=== PATIENT | female | born 1990 | race Asian ===

== ENCOUNTER 2018-07-07 02:49 | Observation (INO) | payer OTHER ==
--- NOTE | 2018-07-07 03:17 | EDM.PDOC ---
ED HPI GENERAL MEDICAL PROBLEM - General Chief Complaint: Abdominal Pain Stated Complaint: ABDOMINAL PAIN Time Seen by Provider: 07/07/18 03:04 - History of Present Illness INITIAL COMMENTS - FREE TEXT/NARRATIVE: 27-year-old female presents to the emergency room after being evaluated in [place] for right lower quadrant pain. Patient developed right lower quadrant pain about a week ago this is progressively gotten worse. She went to the emergency room at [facility] and had an evaluation where she was noted have a low-grade fever leukocytosis and right lower quadrant pain. CT scan was done which was suggestive of an early appendicitis with an appendicolith in the midportion of the appendix. The provider in [place] did discuss this with our on-call surgeon and the patient was brought to our emergency room by private car. 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: - Infectious Disease History Infectious Disease History: Reports: HIV-Human Immunodeficiency Virus - Past Surgical History Female Surgical History: Reports: Section Social & Family History - Tobacco Use Smoking Status *Q: Current Every Day Smoker Years of Tobacco use: 5 Packs/Tins Daily: 0.2 - Alcohol Use Days Per Week of Alcohol Use: 2 Number of Drinks Per Day: 1 Total Drinks Per Week: 2 - Recreational Drug Use Recreational Drug Use: No ED ROS GENERAL - Review of Systems Review Of Systems: See Below Constitutional: Reports: Fever, Chills HEENT: Reports: No Symptoms Respiratory: Reports: No Symptoms Cardiovascular: Reports: No Symptoms Endocrine: Reports: No Symptoms GI/Abdominal: Reports: Abdominal Pain, Nausea. Denies: Constipation, Diarrhea : Reports: No Symptoms ED EXAM, GI/ABD - Physical Exam Exam: See Below Exam Limited By: No Limitations General Appearance: Alert, No Apparent Distress Head: Atraumatic, Normocephalic Neck: Normal Inspection, Supple, Non-Tender, Full Range of Motion Respiratory/Chest: No Respiratory Distress, Lungs Clear, Normal Breath Sounds Cardiovascular: Regular Rate, Rhythm, No Edema, No Murmur GI/Abdominal Exam: Rebound (Impression left lower abdomen upon release causes sharp exquisite discomfort in the right lower quadrant.), Tender (Right lower quadrant) Back Exam: Normal Inspection. No: CVA Tenderness (L), CVA Tenderness (R) Extremities: Normal Inspection, No Pedal Edema Neurological: Alert, Oriented, Normal Cognition Lymphatic: No Adenopathy Course - Vital Signs Last Recorded V/S: Last Vital Signs Temp 36.5 C 07/07/18 02:56 Pulse 92 07/07/18 02:56 Resp 18 07/07/18 02:56 BP 123/70 07/07/18 02:56 Pulse Ox 99 07/07/18 02:56 - Orders/Labs/Meds Orders: Active Orders 24 hr Category Date Time Status BASIC METABOLIC PANEL,BMP [CHEM] Stat Lab 07/07/18 03:45 Received Dextrose 5%-0.9% NaCl with KCl [D5 NS with 20 mEq KCl] Med 07/07/18 03:45 Active 1,000 ml IV ASDIRECTED metroNIDAZOLE/Normal Saline [Flagyl 500 MG in NS 100 ML Med 07/07/18 03:30 Active ] 500 mg Premix Bag 1 bag IV Q8H Medication Orders Metronidazole 500 mg/ Premix 100 mls @ 100 mls/hr IV Q8H JEFFREY Potassium Chloride/Dextrose/Sod Cl (D5 Ns With 20 Meq Kcl) 1,000 mls @ 100 mls/ hr IV ASDIRECTED JEFFREY Last Admin: 07/07/18 03:59 Dose: 100 mls/hr Meds: Medications Generic Name Dose Route Start Last Admin Trade Name Freq PRN Reason Stop Dose Admin Metronidazole 500 mg/ Premix 100 mls @ 100 mls/hr 07/07/18 03:30 IV Q8H JEFFREY Potassium Chloride/Dextrose/Sod Cl 1,000 mls @ 100 mls/hr 07/07/18 03:45 01/15 03:59 D5 Ns With 20 Meq Kcl IV 100 mls/hr ASDIRECTED JEFFREY Administration Discontinued Medications Generic Name Dose Route Start Last Admin Trade Name Freq PRN Reason Stop Dose Admin Ceftriaxone Sodium 1 gm/ 100 mls @ 200 mls/hr 07/07/18 03:29 07/07/18 03:42 Sodium Chloride IV 07/07/18 03:58 200 mls/hr ONETIME ONE Administration - Re-Assessments/Exams Free Text/Narrative Re-Assessment/Exam: 07/07/18 03:35 Patient presents emergency room via private car after being evaluated [place] thought to have acute appendicitis. Reviewed the labs she could have a distal appendicitis on exam she's got positive rebound on the left side with pain radiating to the right lower quadrant gentle palpation reveals significant discomfort in the right lower quadrant. Case discussed with patient will be placed on observation anticipate appendectomy today we'll start IV Rocephin and Flagyl. Recheck basic metabolic panel his potassium was quite low and [place] she's received 20 mEq of oral potassium and 20 mg of IV potassium in [place]. Departure - Departure Time of Disposition: 03:50 Disposition: Refer to Observation Clinical Impression: Appendicitis - Discharge Information Referrals: PCP,None [Primary Care Provider] - Forms: ED Department Discharge - My Orders Last 24 Hours: My Active Orders 07/07/18 03:30 metroNIDAZOLE/Normal Saline [Flagyl 500 MG in NS 100 ML] 500 mg Premix Bag 1 bag IV Q8H 07/07/18 03:45 BASIC METABOLIC PANEL,BMP [CHEM] Stat Dextrose 5%-0.9% NaCl with KCl [D5 NS with 20 mEq KCl] 1,000 ml IV ASDIRECTED - Assessment/Plan Last 24 Hours: My Active Orders 07/07/18 03:30 metroNIDAZOLE/Normal Saline [Flagyl 500 MG in NS 100 ML] 500 mg Premix Bag 1 bag IV Q8H 07/07/18 03:45 BASIC METABOLIC PANEL,BMP [CHEM] Stat Dextrose 5%-0.9% NaCl with KCl [D5 NS with 20 mEq KCl] 1,000 ml IV ASDIRECTED
[2018-07-07] MEDS ORDERED: cefTRIAXone 1 GM in Sodium Chloride 0.9% 100 ML IV ONE (03:29)
[2018-07-07] MEDS ORDERED: metroNIDAZOLE/Normal Saline 500 MG in Premix Bag 1 BAG IV SCH (03:30)
[2018-07-07] MEDS ORDERED: Dextrose 5%-0.9% NaCl with KCl 1,000 ML IV SCH ×2 (03:45→06:00)
[2018-07-07] MEDS ORDERED: Morphine 2 MG/ML Syringe IVPUSH PRN (05:54)
[2018-07-07] MEDS ORDERED: Ondansetron 4 MG/2 ML SDV IVPUSH PRN ×2 (05:54→12:12)
[2018-07-07] MEDS ORDERED: Lidocaine 1% with EPINEPHrine 1:100,000 20 ML MDV ONE (07:24)
--- NOTE | 2018-07-07 07:47 | PCM.HP ---
H&P History of Present Illness - General Date of Service: 07/07/18 Admit Problem/Dx: Admission Diagnosis/Problem Admission Diagnosis/Problem Appendicitis - History of Present Illness Initial Comments - Free Text/Narative: The patient is a 27 y/o female who presents with 8 days of RLQ abdominal pain. She reports decreased appetite and obstipation. She denies any diarrhea, hematochezia or melena. She denies fever. She denies any nausea or vomiting. She was seen at an outside facility and underwent lab testing and CT scan of the abdomen. WBC was 19K and CT scan was consistent with appendicolith and tip appendicitis. 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: - Infectious Disease History Infectious Disease History: Reports: HIV-Human Immunodeficiency Virus - Past Surgical History Female Surgical History: Reports: Section Social & Family History - Family History Cardiac: Reports: None Respiratory: Reports: None GI: Reports: None - Tobacco Use Smoking Status *Q: Current Every Day Smoker Years of Tobacco use: 5 Packs/Tins Daily: 1 Used Tobacco, but Quit: No Second Hand Smoke Exposure: Yes - Caffeine Use Caffeine Use: Reports: Coffee Other Caffeine Use: one cup of coffee every day - Alcohol Use Days Per Week of Alcohol Use: 2 Number of Drinks Per Day: 1 Total Drinks Per Week: 2 - Recreational Drug Use Recreational Drug Use: No H&P Review of Systems - Review of Systems: Review Of Systems: See Below General: Reports: Decreased Appetite HEENT: Reports: No Symptoms Pulmonary: Reports: No Symptoms Cardiovascular: Reports: No Symptoms Gastrointestinal: Reports: Abdominal Pain, Decreased Appetite Genitourinary: Reports: No Symptoms Musculoskeletal: Reports: No Symptoms Skin: Reports: No Symptoms Psychiatric: Reports: No Symptoms Neurological: Reports: No Symptoms Exam - Exam Exam: See Below - Vital Signs Vital Signs: Last Vital Signs Temp 36.6 C 07/07/18 04:18 Pulse 97 07/07/18 04:18 Resp 16 07/07/18 04:18 BP 111/51 L 07/07/18 04:18 Pulse Ox 97 07/07/18 04:18 Weight: 52.39 kg - Exam Quality Assessment: No: Supplemental Oxygen General: Alert, Oriented HEENT: Conjunctiva Clear, EOMI Neck: Supple Lungs: Clear to Auscultation, Normal Respiratory Effort Cardiovascular: Regular Rate, Regular Rhythm GI/Abdominal Exam: Normal Bowel Sounds, Soft, Tender (on R abdomen, RLQ most tender) Extremities: Normal Inspection, No Pedal Edema Peripheral Pulses: 2+: Posterior Tibial (L), Posterior Tibial (R) Skin: Warm, Dry, Intact Neurological: Cranial Nerves Intact Neuro Extensive - Mental Status: Alert, Oriented x3, Normal Mood/Affect - Patient Data Lab Results Last 24 hrs: Laboratory Results - last 24 hr 07/07/18 Range/Units 03:45 Sodium 142 (136-145) mEq/L Potassium 3.6 (3.5-5.1) mEq/L Chloride 106 (98-107) mEq/L Carbon Dioxide 26 (21-32) mEq/L Anion Gap 13.6 (5-15) BUN 11 (7-18) mg/dL Creatinine 0.6 (0.55-1.02) mg/dL Est Cr Clr Drug Dosing 100.27 mL/min Estimated GFR (MDRD) > 60 (>60) mL/min BUN/Creatinine Ratio 18.3 H (14-18) Glucose 98 (74-106) mg/dL Calcium 8.7 (8.5-10.1) mg/dL Result Diagrams: 07/07/18 03:45 *Q Meaningful Use (ADM) - VTE Risk Assess *Q Each Risk Factor Represents 1 Point: Minor Surgery Planned Total Score 1 Point Risk Factors: 1 - Problem List (1) Appendicitis SNOMED Code(s): 29580358 ICD Code: K37 - UNSPECIFIED APPENDICITIS Status: Acute Current Visit: Yes Qualifiers: Appendicitis type: acute appendicitis Appendicitis gangrene presence: without gangrene Appendicitis perforation presence: without perforation Appendicitis abscess presence: without abscess Problem List Initiated/Reviewed/Updated: Yes Orders Last 24hrs: Active Orders 24 hr Category Date Time Status Patient Status [ADT] Routine ADT 07/07/18 04:25 Active Bedrest Bathroom Privileges [RC] ASDIRECTED Care 07/07/18 05:41 Active NPO Now [Nothing per Oral Now Diet] [DIET] Diet 07/07/18 Breakfast Active Dextrose 5%-0.9% NaCl with KCl [D5 NS with 20 mEq KCl] Med 07/07/18 06:00 Active 1,000 ml IV ASDIRECTED Morphine Med 07/07/18 05:54 Active 2 mg IVPUSH Q2H PRN Ondansetron [Zofran] Med 07/07/18 05:54 Active 4 mg IVPUSH Q8H PRN metroNIDAZOLE [Flagyl] Med 07/07/18 12:30 Active 500 mg PO Q8H Code Status [Resuscitation Status] Routine Resus Stat 07/07/18 05:40 Ordered Medication Orders Potassium Chloride/Dextrose/Sod Cl (D5 Ns With 20 Meq Kcl) 1,000 mls @ 100 mls/ hr IV ASDIRECTED JEFFREY Metronidazole (Flagyl) 500 mg PO Q8H JEFFREY Morphine Sulfate (Morphine) 2 mg IVPUSH Q2H PRN PRN Reason: Pain Ondansetron HCl (Zofran) 4 mg IVPUSH Q8H PRN PRN Reason: Nausea Assessment/Plan Comment:: An 7-year-old lady with acute appendicitis, appears to be tip appendicitis based on CT findings - Consented for laparoscopic appendectomy, possible open. Risks of infection, bleeding and possible bowel injury discussed. Written consent was obtained - IV antibiotics with 1 g ceftriaxone and 500 mg metronidazole IV - Continue home medication regimen - Nothing by mouth with IV fluids - Will assess need for continued inpatient stay. Based on intraoperative findings. Octavia Zarate MD General Surgery
[2018-07-07] MEDS ORDERED: ceFAZolin 1 GM Vial ONE (08:05)
[2018-07-07] MEDS ORDERED: Rocuronium 50 MG/5 ML Vial ONE (08:05)
[2018-07-07] MEDS ORDERED: Lactated Ringers 1,000 ML ONE (08:05)
[2018-07-07] MEDS ORDERED: Ondansetron 4 MG/2 ML SDV ONE (08:05)
[2018-07-07] MEDS ORDERED: Dexamethasone 4 MG/ML SDV ONE ×2 (08:05→08:06)
[2018-07-07] MEDS ORDERED: Lidocaine 1% 4 ML ONE (08:05)
[2018-07-07] MEDS ORDERED: fentaNYL 250 MCG/5 ML SDV ONE (08:06)
[2018-07-07] MEDS ORDERED: Midazolam 1 MG/ML 2 ML SDV ONE (08:06)
[2018-07-07] MEDS ORDERED: Propofol 200 MG/20 ML SDV ONE (08:06)
[2018-07-07] MEDS ORDERED: EMTRICITABINE PO SCH (09:00)
[2018-07-07] MEDS ORDERED: TENOFOVIR PO SCH (09:00)
[2018-07-07] MEDS ORDERED: DARUNAVIR 800 MG PO SCH (09:00)
[2018-07-07] MEDS ORDERED: RITONAVIR 100 MG PO SCH (09:00)
--- NOTE | 2018-07-07 09:11 | PCM.PREANE ---
Preanesthetic Assessment - Anesthesia/Transfusion/Family Hx Anesthesia History: Prior Anesthesia Without Reaction Family History of Anesthesia Reaction: No Transfusion History: No Prior Transfusion(s) - Review of Systems General: No Symptoms Pulmonary: No Symptoms, Other (Smoker. 5 cigarettes per day. ) Gastrointestinal: Abdominal Pain Neurological: No Symptoms Other: Reports: None (HIV positive. On antiviral medications. Anemia. ) - Physical Assessment NPO Status Date: 07/06/18 NPO Status Time: 21:00 Pulse: 97 O2 Sat by Pulse Oximetry: 97 Respiratory Rate: 16 Blood Pressure: 111/51 Temperature: 36.6 C Vital Signs: Last Vital Signs Temp 36.6 C 07/07/18 04:18 Pulse 97 07/07/18 04:18 Resp 16 07/07/18 04:18 BP 111/51 L 07/07/18 04:18 Pulse Ox 97 07/07/18 04:18 Height: 1.5 m Weight: 52.39 kg ASA Class: 2 Mental Status: Alert & Oriented x3 Airway Class: Mallampati = 1 Dentition: Reports: Missing Tooth/Teeth (Loose tooth bottom left molar. Loose for 18 years, not painful. ), Caries Thyro-Mental Finger Breadths: 3 Mouth Opening Finger Breadths: 3 ROM/Head Extension: Full Lungs: Clear to Auscultation, Normal Respiratory Effort Cardiovascular: Regular Rate, Regular Rhythm - Lab Values: Laboratory Last Values Sodium 142 mEq/L (136-145) 07/07/18 03:45 Potassium 3.6 mEq/L (3.5-5.1) 07/07/18 03:45 Chloride 106 mEq/L (98-107) 07/07/18 03:45 Carbon Dioxide 26 mEq/L (21-32) 07/07/18 03:45 Anion Gap 13.6 (5-15) 07/07/18 03:45 BUN 11 mg/dL (7-18) 07/07/18 03:45 Creatinine 0.6 mg/dL (0.55-1.02) 07/07/18 03:45 Est Cr Clr Drug Dosing 100.27 mL/min 07/07/18 03:45 Estimated GFR (MDRD) > 60 mL/min (>60) 07/07/18 03:45 BUN/Creatinine Ratio 18.3 (14-18) H 07/07/18 03:45 Glucose 98 mg/dL (74-106) 07/07/18 03:45 Calcium 8.7 mg/dL (8.5-10.1) 07/07/18 03:45 HCG from [facility] is negative. CBC from [facility] wbc 19.6 hgb 9.3 hct 27.2 plt 462 BMP from [facility] k+ 2.8. Potassium administered repeat BMP above K+3.6. 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: Hematologic History: Reports: Anemia Immunologic History: Reports: HIV - Infectious Disease History Infectious Disease History: Reports: HIV-Human Immunodeficiency Virus - Past Surgical History Female Surgical History: Reports: Section - SUBSTANCE USE Smoking Status *Q: Current Every Day Smoker Tobacco Use Within Last Twelve Months: Cigarettes Second Hand Smoke Exposure: Yes Days Per Week of Alcohol Use: 2 Number of Drinks Per Day: 1 Total Drinks Per Week: 2 Recreational Drug Use History: No - HOME MEDS Home Medications: Home Meds Darunavir Ethanolate [Prezista] 800 mg PO DAILY 07/07/18 [History] Emtricitabine/Tenofovir [Truvada 200 MG-300 MG] 200 - 300 mg PO DAILY 07/07/18 [ History] Iron Polysaccharides Complex [Ferrex 150] 150 mg PO DAILY 07/07/18 [History] Ritonavir [Norvir] 100 mg PO DAILY 07/07/18 [History] - CURRENT (IN HOUSE) MEDS Current Meds: Current Medications Potassium Chloride/Dextrose/Sod Cl (D5 Ns With 20 Meq Kcl) 1,000 mls @ 100 mls/ hr IV ASDIRECTED JEFFREY Metronidazole (Flagyl) 500 mg PO Q8H JEFFREY Morphine Sulfate (Morphine) 2 mg IVPUSH Q2H PRN PRN Reason: Pain Last Admin: 07/07/18 08:10 Dose: 2 mg Ondansetron HCl (Zofran) 4 mg IVPUSH Q8H PRN PRN Reason: Nausea Discontinued Medications Bupivacaine HCl/Epinephrine Bitart (Marcaine 0.5%/Epinephrine 1:200,000) Confirm Administered Dose 50 ml .ROUTE .STK-MED ONE Stop: 07/07/18 07:25 Cefazolin Sodium (Ancef) Confirm Administered Dose 2 gm .ROUTE .STK-MED ONE Stop: 07/07/18 08:06 Dexamethasone (Dexamethasone) Confirm Administered Dose 4 mg .ROUTE .STK-MED ONE Stop: 07/07/18 08:06 Dexamethasone (Dexamethasone) Confirm Administered Dose 4 mg .ROUTE .STK-MED ONE Stop: 07/07/18 08:07 Fentanyl (Sublimaze) Confirm Administered Dose 250 mcg .ROUTE .STK-MED ONE Stop: 07/07/18 08:07 Ceftriaxone Sodium 1 gm/ (Sodium Chloride) 100 mls @ 200 mls/hr IV ONETIME ONE Stop: 07/07/18 03:58 Last Admin: 07/07/18 03:42 Dose: 200 mls/hr Metronidazole 500 mg/ Premix 100 mls @ 100 mls/hr IV Q8H [facility] Last Admin: 07/07/18 04:33 Dose: 100 mls/hr Potassium Chloride/Dextrose/Sod Cl (D5 Ns With 20 Meq Kcl) 1,000 mls @ 100 mls/ hr IV ASDIRECTED [facility] Last Admin: 07/07/18 03:59 Dose: 100 mls/hr Lidocaine HCl (Xylocaine-Mpf 1%) Confirm Administered Dose 4 mls @ as directed .ROUTE .ST-MED ONE Stop: 07/07/18 08:06 Lactated Ringer's (Ringers, Lactated) Confirm Administered Dose 1,000 mls @ as directed .ROUTE .STK-MED ONE Stop: 07/07/18 08:06 Lidocaine/Epinephrine (Xylocaine 1% With Epinephrine 1:100,000) Confirm Administered Dose 40 ml .ROUTE .STK-MED ONE Stop: 07/07/18 07:25 Midazolam HCl (Versed 1 Mg/Ml) Confirm Administered Dose 2 mg .ROUTE .STK-MED ONE Stop: 07/07/18 08:07 Ondansetron HCl (Zofran) Confirm Administered Dose 4 mg .ROUTE .STK-MED ONE Stop: 07/07/18 08:06 Propofol (Diprivan 20 Ml) Confirm Administered Dose 400 mg .ROUTE .STK-MED ONE Stop: 07/07/18 08:07 Rocuronium Dyer (Zemuron) Confirm Administered Dose 50 mg .ROUTE .STK-MED ONE Stop: 07/07/18 08:06
[2018-07-07] MEDS ORDERED: HYDROmorphone 0.5 MG/0.5 ML Syringe ONE (11:17)
[2018-07-07] MEDS: Bupivacaine 0.5%/EPINEPHrine 1:200,000 50 ML MDV ONE ×2 (11:21→11:22)
[2018-07-07] MEDS ORDERED: Neostigmine Methylsulfate 1 MG/ML 5 ML Syringe ONE (11:34)
--- NOTE | 2018-07-07 11:48 | PCM.OPNOTE ---
- General Post-Op/Procedure Note Date of Surgery/Procedure: 07/07/18 Operative Procedure(s): laparoscopic appendectomy Findings: peritonitis and appendicitis Pre Op Diagnosis: acute appendicitis Post-Op Diagnosis: same Anesthesia Technique: General ET Tube Primary Surgeon: Octavia Zarate Anesthesia Provider: Vince Mcelroy Pathology: appendix Fluid Replacement, Intraop: 1,000 Output, Urine Amount: 0 EBL in mLs: 25 Complications: none apparent Condition: Good
[2018-07-07] MEDS ORDERED: Ibuprofen 600 MG Tab PO PRN (11:49)
[2018-07-07] MEDS ORDERED: Acetaminophen/HYDROcodone 325-5 MG Tab PO PRN (11:49)
--- NOTE | 2018-07-07 11:53 | PCM.PRNOTE ---
- Free Text/Narrative Note: Operative Report Date of surgery: July 07, 2018 Preoperative diagnosis: acute appendicitis. Postoperative diagnosis: same Procedure performed: laparoscopic appendectomy Surgeon: Dr. Octavia Zarate Anesthesia: General Die Developer: . Vince Mcelroy CRNA Estimated blood loss: 25 mL IV fluids: 1000 mL Urine output: 0 Drains and lines: None Findings: . Peritonitis and acute appendicitis, not ruptured Pathology: Appendix Indications for procedure: The patient is a 27-year-old female presented from an outside facility with findings of tip appendicitis. She was consented for laparoscopic appendectomy, with possible conversion to open. After discussion of the risks, her written consent was obtained. Description of procedure: The patient was taken back to the operating room and placed in supine position on the operating table. SCD boots were in place and functional prior to the start of the procedure. Preoperative antibiotics were administered according to SCIP guidelines. The patient had successful induction of general anesthesia and was intubated without difficulty. Pt was then prepped and draped in standard surgical fashion and a timeout was performed. We began by making a 15 mm incision in the infraumbilical skin and deepened down to level of the fascia which was then grasped and incised sharply. We entered the peritoneum and then placed stay sutures of 0 Vicryl on the fascial edges. A 12 mm Hayden port was then placed into the umbilicus and the balloon was inflated. The abdomen was insufflated to 15 mmHg a 5 mm camera was inserted. There was no evidence of any injury created from entry into the abdomen. A TA P block was performed using mixed 1% lidocaine with epinephrine and 0.5% bupivacaine with epinephrine . We then proceeded to place a 5 mm port under direct visualization in the suprapubic midline and an additional 5mm port in the left lower quadrant. The omentum and peritoneum were injected and erythematous The patient was then positioned in Trendelenburg with right side elevated and we proceeded to mobilize the appendix. The appendix was mobilized and grasped. It was brought into the surgical field. There was a small amount of bloody fluid in the abdomen, which was blotted out. The appendix was then grasped and with blunt dissection was brought into the surgical field. The mesoappendix dissected from the appendix. The appendix was then taken with a tissue staple load. The mesoappendix was then taken with a vascular staple load. It was immediately noted that the staple line did not adequately control the bleeding and there was an arterial bleeder staple line. This was grasped and pressure held in this area. A 5 mm clip was then used to clip this area. Hemostasis was then achieved. The electrocautery was used to take down a small piece of fatty tissue that was not cut with the stapler. The specimen was in place in the Endo Catch bag. We then inspected and blotted up any blood in the area. There was no active bleeding at the end of this case. The abdomen was then desufflated and the umbilical fascia closed with 0 Vicryl sutures and the stay sutures were tied, effectively closing the umbilical port site. The skin was then reapproximated at all port sites using a 4-0 Monocryl subcutaneous stitch and covered with Dermabond surgical glue. The patient tolerated the procedure. She was extubated and transported to the PACU in stable condition. All sponge and needle counts were correct. I was present and scrubbed for the entirety of the procedure. Octavia Zarate MD General Surgery
--- NOTE | 2018-07-07 12:03 | PCM.POSTAN ---
POST ANESTHESIA ASSESSMENT - MENTAL STATUS Mental Status: Alert, Oriented - VITAL SIGNS Pulse Rate: 106 SaO2: 100 Resp Rate: 19 Blood Pressure: 108/70 Temperature: 36.9 C - RESPIRATORY Respiratory Status: Respiratory Rate WNL, Airway Patent, O2 Saturation Stable, Supplemental Oxygen - CARDIOVASCULAR CV Status: Pulse Rate WNL, Blood Pressure Stable - GASTROINTESTINAL GI Status: No Symptoms - PAIN Pain Score: 0 - POST OP HYDRATION Hydration Status: Adequate & Stable
[2018-07-07] MEDS ORDERED: fentaNYL 100 MCG/2 ML SDV IVPUSH PRN (12:12)
[2018-07-07] MEDS ORDERED: diphenhydrAMINE 50 MG/ML SDV IVPUSH PRN (12:12)
[2018-07-07] MEDS ORDERED: Meperidine 50 MG/ML Vial IVPUSH PRN (12:12)
[2018-07-07] MEDS ORDERED: HYDROmorphone 1 MG/ML Syringe IVPUSH PRN (12:12)
[2018-07-07] MEDS ORDERED: metroNIDAZOLE 500 MG Tab PO SCH (12:30)
--- NOTE | 2018-07-08 16:52 | PCM48HPAN ---
Post Anesthesia Note - EVALUATION WITHIN 48HRS OF ANESTHETIC Vital Signs in Normal Range: Yes Patient Participated in Evaluation: Yes Respiratory Function Stable: Yes Airway Patent: Yes Cardiovascular Function Stable: Yes Hydration Status Stable: Yes Pain Control Satisfactory: Yes Nausea and Vomiting Control Satisfactory: Yes Mental Status Recovered: Yes
--- NOTE | 2018-07-10 16:49 | PCM.DCSUM1 ---
Discharge Summary - Hospital Course Free Text/Narrative:: The patient was admitted with acute appendicitis. She was taken to the OR and underwent a laparoscopic appendectomy. She was discharged home on POD 0. Diagnosis: Stroke: No Modified Stephany Scale: No Signif.Disability Despite Sympt.Able to Carry Out Usual Act./Duties Modified Stephany Scale Score: 1 - Discharge Data Discharge Date: 07/07/18 Discharge Disposition: Home, Self-Care 01 Condition: Good - Discharge Diagnosis/Problem(s) (1) Appendicitis SNOMED Code(s): 84498139 ICD Code: K37 - UNSPECIFIED APPENDICITIS Status: Acute Qualifiers: Appendicitis type: acute appendicitis Appendicitis gangrene presence: without gangrene Appendicitis perforation presence: without perforation Appendicitis abscess presence: without abscess - Patient Summary/Data Operative Procedure(s) Performed: laparoscopic appendectomy - Patient Instructions Diet: Usual Diet as Tolerated Activity: As Tolerated, No Lifting Over 20 Pounds, No Strenuous Activities, Rest and Relax Today Showering/Bathing: May Shower, No Tub Bathing/Swimming Wound/Incision Care: Keep Operative Site/Wound Site Clean and Dry Notify Provider of: Fever, Increased Pain, Swelling and Redness, Drainage, Nausea and/or Vomiting Other/Special Instructions: You may return to work in 2 weeks. - Discharge Plan *PRESCRIPTION DRUG MONITORING PROGRAM REVIEWED*: Not Applicable *COPY OF PRESCRIPTION DRUG MONITORING REPORT IN PATIENT LAMONTE: Not Applicable Prescriptions/Med Rec: Acetaminophen/HYDROcodone [[place] 325-5 MG] 1 tab PO Q4H PRN 14 Days #40 tablet PRN Reason: Pain (Moderate 4-6) Docusate Sodium [Colace] 100 mg PO BID 20 Days #40 cap Ibuprofen [Motrin] 600 mg PO Q6H PRN #120 tablet PRN Reason: Pain (Mild 1-3) Home Medications: Home Meds Acetaminophen/HYDROcodone [[place] 325-5 MG] 1 tab PO Q4H PRN 14 Days #40 tablet 07/07/18 [Rx] Darunavir Ethanolate [Prezista] 800 mg PO DAILY 07/07/18 [History] Docusate Sodium [Colace] 100 mg PO BID 20 Days #40 cap 07/07/18 [Rx] Emtricitabine/Tenofovir [Truvada 200 MG-300 MG] 200 - 300 mg PO DAILY 07/07/18 [ History] Ibuprofen [Motrin] 600 mg PO Q6H PRN #120 tablet 07/07/18 [Rx] Iron Polysaccharides Complex [Ferrex 150] 150 mg PO DAILY 07/07/18 [History] Ritonavir [Norvir] 100 mg PO DAILY 07/07/18 [History] Patient Handouts: Appendicitis, Laparoscopic Appendectomy, Adult, Care After Referrals: Olimpia Miranda [employer] [Nurse Practitioner] - 07/21/18 8:45 am (Please follow-up with Dr. Olimpia Miranda on TuesdayJuly 21 at 0845am. This is a surgical follow-up. If this day does not work, please call and reschedule. [phone] ([facility] in [place])) - Discharge Summary/Plan Comment DC Time >30 min.: No - Patient Data Vitals - Most Recent: Last Vital Signs Temp 36.9 C 07/07/18 13:53 Pulse 74 07/07/18 15:01 Resp 14 07/07/18 13:53 BP 112/65 07/07/18 15:01 Pulse Ox 98 07/07/18 15:01 Weight - Most Recent: 52.39 kg Med Orders - Current: Current Medications Discontinued Medications Hydrocodone Bitart/Acetaminophen ([place] 325-5 Mg) 1 tab PO Q4H PRN PRN Reason: Pain (moderate 4-6) Last Admin: 07/07/18 15:39 Dose: 1 tab Bupivacaine HCl/Epinephrine Bitart (Marcaine 0.5%/Epinephrine 1:200,000) Confirm Administered Dose 50 ml .ROUTE .STK-MED ONE Stop: 07/07/18 07:25 Last Admin: 07/07/18 11:22 Dose: 20 ml Cefazolin Sodium (Ancef) Confirm Administered Dose 2 gm .ROUTE .STK-MED ONE Stop: 07/07/18 08:06 Dexamethasone (Dexamethasone) Confirm Administered Dose 4 mg .ROUTE .STK-MED ONE Stop: 07/07/18 08:06 Dexamethasone (Dexamethasone) Confirm Administered Dose 4 mg .ROUTE .STK-MED ONE Stop: 07/07/18 08:07 Diphenhydramine HCl (Benadryl) 25 mg IVPUSH Q6H PRN PRN Reason: Pruritis Stop: 07/07/18 23:00 Fentanyl (Sublimaze) Confirm Administered Dose 250 mcg .ROUTE .STK-MED ONE Stop: 07/07/18 08:07 Fentanyl (Sublimaze) 50 mcg IVPUSH Q5M PRN PRN Reason: Pain Stop: 07/07/18 23:00 Glycopyrrolate () Confirm Administered Dose 1 mg .ROUTE .STK-MED ONE Stop: 07/07/18 11:35 Hydromorphone HCl (Dilaudid) Confirm Administered Dose 1 mg .ROUTE .STK-MED ONE Stop: 07/07/18 11:18 Hydromorphone HCl (Dilaudid) 0.5 mg IVPUSH Q15M PRN PRN Reason: Pain (severe 7-10) Stop: 07/07/18 23:00 Ceftriaxone Sodium 1 gm/ (Sodium Chloride) 100 mls @ 200 mls/hr IV ONETIME ONE Stop: 07/07/18 03:58 Last Admin: 07/07/18 03:42 Dose: 200 mls/hr Metronidazole 500 mg/ Premix 100 mls @ 100 mls/hr IV Q8H [facility] Last Admin: 07/07/18 04:33 Dose: 100 mls/hr Potassium Chloride/Dextrose/Sod Cl (D5 Ns With 20 Meq Kcl) 1,000 mls @ 100 mls/ hr IV ASDIRECTED [facility] Last Admin: 07/07/18 03:59 Dose: 100 mls/hr Potassium Chloride/Dextrose/Sod Cl (D5 Ns With 20 Meq Kcl) 1,000 mls @ 100 mls/ hr IV ASDIRECTED [facility] Lidocaine HCl (Xylocaine-Mpf 1%) Confirm Administered Dose 4 mls @ as directed .ROUTE .STK-MED ONE Stop: 07/07/18 08:06 Lactated Ringer's (Ringers, Lactated) Confirm Administered Dose 1,000 mls @ as directed .ROUTE .STK-MED ONE Stop: 07/07/18 08:06 Ibuprofen (Motrin) 600 mg PO Q6H PRN PRN Reason: Pain (mild 1-3) Lidocaine/Epinephrine (Xylocaine 1% With Epinephrine 1:100,000) Confirm Administered Dose 40 ml .ROUTE .STK-MED ONE Stop: 07/07/18 07:25 Last Admin: 07/07/18 11:22 Dose: 20 ml Meperidine HCl (Meperidine) 12.5 mg IVPUSH ONETIME PRN PRN Reason: SHIVERING Stop: 07/07/18 23:00 Metronidazole (Flagyl) 500 mg PO Q8H [facility] Last Admin: 07/07/18 15:50 Dose: Not Given Midazolam HCl (Versed 1 Mg/Ml) Confirm Administered Dose 2 mg .ROUTE .STK-MED ONE Stop: 07/07/18 08:07 Morphine Sulfate (Morphine) 2 mg IVPUSH Q2H PRN PRN Reason: Pain Last Admin: 07/07/18 08:10 Dose: 2 mg Neostigmine Methylsulfate (Neostigmine) Confirm Administered Dose 5 mg .ROUTE .STK-MED ONE Stop: 07/07/18 11:35 Ondansetron HCl (Zofran) 4 mg IVPUSH Q8H PRN PRN Reason: Nausea Ondansetron HCl (Zofran) Confirm Administered Dose 4 mg .ROUTE .STK-MED ONE Stop: 07/07/18 08:06 Ondansetron HCl (Zofran) 4 mg IVPUSH ONETIME PRN PRN Reason: Nausea/Vomiting Stop: 07/07/18 23:00 Ritonavir 100 Mg Tab (Ptom) 0 each PO DAILY [facility] Last Admin: 07/07/18 09:11 Dose: 1 each Emtricitabine/Tenofovir (Truvada) 200mg/300 Mg Tab Ptom 0 each PO DAILY [facility] Last Admin: 07/07/18 09:11 Dose: 1 each Darunavir 800 Mg Tab (Ptom) 0 each PO DAILY [facility] Last Admin: 07/07/18 09:11 Dose: 1 each Propofol (Diprivan 20 Ml) Confirm Administered Dose 400 mg .ROUTE .STK-MED ONE Stop: 07/07/18 08:07 Rocuronium [place] (Zemuron) Confirm Administered Dose 50 mg .ROUTE .STK-MED ONE Stop: 07/07/18 08:06
== END 2018-07-07 16:37 | disposition home or self-care (01) ==
LOC: JD.ED 02:49 → JD.MS 04:25
PROVIDERS: ADMIT Surgery; ATTEND Surgery
DX: K35.30 Acute appendicitis with localized peritonitis, without perforation or gangrene (principal); Z21 Asymptomatic human immunodeficiency virus [HIV] infection status; F17.200 Nicotine dependence, unspecified, uncomplicated; Z79.899 Other long term (current) drug therapy
CPT/HCPCS: 36415; 44970; 80048; 96361; 96365; 96367; 96375; 99285; A9270; G0378; J0690; J0696; J1100; J1170; J2001; J2250; J2270; J2405; J2704; J2710; J3010; J3480; J3490; J7030; J7120; 00840